=== PATIENT | male | born 1965 | race Caucasian/White ===

== ENCOUNTER 2024-11-06 08:00 | Outpatient (CLI) | payer OTHER, SELFPAY ==
--- NOTE | 2024-11-13 07:43 | EKG12_ITS ---
Test Reason : PREOP Blood Pressure : */* mmHG Vent. Rate : 86 BPM Atrial Rate : 86 BPM P-R Int : 178 ms QRS Dur : 92 ms QT Int : 360 ms P-R-T Axes : 61 12 47 degrees QTcB Int : 430 ms Normal sinus rhythm Normal ECG Confirmed by JOSE ROBERTSON ([id number]), scientific editor RIZWAN BARR ([id number]) on 11/17/2024 6:25:19 AM Referred By: Patrick Mckeon Confirmed By: JOSE ROBERTSON
--- NOTE | 2024-11-13 08:40 | PAT.ANESEVAL ---
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 When Was Last Pacemaker Check QUESTION #4 FULL TEXT: You/Your Family Experience fever (hyperthermia) with Anesthesia Last Oral Intake Last Oral intake: Last Oral Intake NPO since Meds taken in AM with sips of water? Meds patient instructed to take am of surgery PONV PONV - police reserves commander: PONV - police reserves commander Female No 11/06/24 08:18 HX of Motion Sickness No 11/06/24 08:18 HX of N/V After Surgery No 11/06/24 08:18 Non-Smoker Yes 11/06/24 08:18 Duration of Surgery greater Yes 11/06/24 08:18 than 60 minutes Number of Risk Factors 2 11/06/24 08:18 PONV Score Moderate Risk 11/06/24 08:18 Respiratory Assessment Respiratory Assessment - police reserves commander: Respiratory Tract Infection Hx - police reserves commander Hx Respiratory Tract Infection No 11/06/24 08:18 STOP Sleep Apnea STOP Sleep Apnea - police reserves commander: STOP Sleep Apnea - police reserves commander Hx Hypertension Yes: NO MEDS FOR 15 YRS 11/06/24 08:18 Hx Sleep Apnea No 11/06/24 08:18 CPAP BIPAP Do you snore loudly (louder Yes 11/06/24 08:18 than talking or can be heard Do you often feel tired/ Yes 11/06/24 08:18 fatigued/ sleepy during daytime? Has anyone observed you stop No 11/06/24 08:18 breathing during sleep? STOP Results Positive 11/06/24 08:18 QUESTION #5 FULL TEXT : Do you snore loudly (louder than talking or can be heard through closed doors)? 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 confused, unrespo /Reproduction History /Reproductive History - police reserves commander: /Reproductive Hx- police reserves commander Hx Now No 11/06/24 08:18 Gestational Age (in weeks): EDC: Hx Hx Para Hx Section SAB No 11/06/24 08:18 PFSH Medical History (Updated 11/09/24 @ 15:30 by Adrianna Toledo) Wears glasses Depression Anxiety Alcohol use Diabetes Arthritis Restless legs Back pain Migraine headache Syncope Dietary restriction Non-smoker Leg cramps History of echocardiogram History of stress test Cardiology follow-up encounter Hypertension Home Medications Medication Instructions Recorded Last Taken Type acetaminophen 325 mg capsule 650 mg PO Q4H PRN pain 11/06/24 Unknown History ibuprofen 200 mg tablet (Motrin IB) 400 mg PO Q8H PRN pain 11/06/24 Unknown History magnesium 250 mg tablet 250 mg PO DAILY 11/06/24 Unknown History fluoxetine 10 mg capsule 10 mg PO DAILY 11/09/24 Unknown History metformin 1,000 mg tablet 1,000 mg PO BID 11/09/24 Unknown History Allergy/AdvReac Type Severity Reaction Status Date / Time Opioids - Morphine Analogues Allergy Severe Nausea/Vom/ Verified 11/06/24 08:14 (narcotics) Diarrhea Surgical History (Updated 11/06/24 @ 08:30 by Adrianna Toledo) Hx of colonoscopy History of root canal procedure Hx of cystoscopy Hx of inguinal hernia repair Social History Smoking Status: Never smoker Recommendation Anesthesia Recommendation Anesthesia recommendation: F/U recommended (Patient scheduled for shoulder surgery, presents to PAT with a BG 363 and Hgb A1C 13.8. Please make surgeon aware since these values are associated with increase shoulder surgery failure)
== END 2024-11-06 19:00 | disposition home or self-care (01) ==
LOC: SDC 01-21 10:01
PROVIDERS: Anesthesiology; PCP Family Medicine; Referring Provider Student in an Organized Health Care Education/Training Program; Visit Provider Student in an Organized Health Care Education/Training Program
DX: Z01.818 Encounter for other preprocedural examination (principal)
CPT/HCPCS: 83036; 93005

== ENCOUNTER → 2024-11-10 | Outpatient (CLI) | payer OTHER, SELFPAY ==
[2024-11-10 08:47] LABS: Hematocrit 45.9 % (40-54); Hemoglobin 16.1 g/dL (13.0-16.5); Immature Granulocytes Count 0.020 X10^3/uL (0.0-0.0); Mean Corp Hgb Conc 35.1 g/dL (32-36); Mean Corpuscular Volume 84.5 fL (80-94); Mean Platelet Vol. 10.1 fl (6.2-12.0); NRBC Flagged by Analyzer 0 % (0-5); Platelet Count 227 K/mm3 (150-450); RBC Distribution Width CV 13.3 % (11.6-14.6); RBC Distribution Width SD 41.1 fl (35.1-43.9); Red Blood Count 5.43 M/mm3 (4.6-6.2); White Blood Count 5.0 K/mm3 (4.4-11.0)
[2024-11-10 09:38] LABS: Cholesterol 184 mg/dL (<=200); Low Density Lipoprotein Calc. 117 mg/dL; PSA,Total - Annual Screen 0.19 ng/mL (0.02-4.00); Triglycerides 159 mg/dL; Very Low Density Lipoprotein 32 mg/dL (5-40); cholesterol:hdl ratio screen 5.26
[2024-11-10 09:49] LABS: AST(SGOT) 13 U/L (<=37); Alanine Aminotransfer ALT/SGPT 9 U/L (<=46); Albumin, Serum 4.2 g/dL (3.5-5.0); Alkaline Phosphatase 103 U/L (40-129); Anion Gap 12 (5-15); BUN 10 mg/dL (4-19); BUN/Creat Ratio 13.8 RATIO (10-20); Calcium,Total 9.2 mg/dL (7.6-11.0); Carbon Dioxide 24.1 mmol/L (21.0-32.0); Chloride 99 mmol/L (98-108); Globulin 2.7 g/dL (2.2-4.2); Glucose 363 mg/dL (70-99); Potassium 4.4 mmol/L (3.3-5.1)
== END | disposition home or self-care (01) ==
LOC: LAB 07:55
PROVIDERS: PCP Family Medicine; Referring Provider Nurse Practitioner Family; Visit Provider Nurse Practitioner Family
DX: Z00.01 Encounter for general adult medical examination with abnormal findings (principal); Z12.5 Encounter for screening for malignant neoplasm of prostate
CPT/HCPCS: 36415; 80053; 80061; 84153; 85025; G0103